=== PATIENT | female | born 1985 ===

== ENCOUNTER 2021-12-12 07:42 | Outpatient (CLI) | payer OTHER | END 2021-12-12 08:50 | disposition home or self-care (01) | LOC: PRENATAL 07:42 | PROVIDERS: ATTEND Obstetrics & Gynecology Maternal & Fetal Medicine | DX: O36.80X0 Pregnancy with inconclusive fetal viability, not applicable or unspecified (principal); O09.519 Supervision of elderly primigravida, unspecified trimester; Z3A.11 11 weeks gestation of pregnancy ==

== ENCOUNTER 2022-01-03 17:03 | Emergency (ER) | payer OTHER ==
[~2022-01-03] VITALS: Ht 170.2 cm; Wt 82.1 kg
== END 2022-01-03 22:34 | disposition home or self-care (01) ==
LOC: ER 17:03
DX: O26.892 Other specified pregnancy related conditions, second trimester (principal); R10.2 Pelvic and perineal pain; Z3A.15 15 weeks gestation of pregnancy

== ENCOUNTER 2022-06-04 18:26 | Outpatient (CLI) | payer OTHER ==
[2022-06-04] MEDS ORDERED: PRENATAL TABLE1 EAC1 PO (19:03)
[2022-06-04] MEDS ORDERED: CHILDREN'S ASPI81 MG PO (19:03)
== END 2022-06-04 22:24 | disposition home or self-care (01) ==
LOC: OBS/DEL 18:26
PROVIDERS: ATTEND Obstetrics & Gynecology
DX: O36.8130 Decreased fetal movements, third trimester, not applicable or unspecified (principal); Z3A.36 36 weeks gestation of pregnancy

== ENCOUNTER 2022-06-24 22:25 | Inpatient (IN) | payer OTHER ==
[~2022-06-24] VITALS: Ht 170.2 cm; Wt 3.2 kg
[~2022-06-24 22:25] MED LIST: CHILDREN'S ASPI81 MG PO; PRENATAL TABLE1 EAC1 PO
== END 2022-06-27 13:00 | disposition home or self-care (01) | DRG 788 ==
LOC: LDR 22:25 → OB/GYN 22:25 → LDR 23:09 → OB/GYN 06-25 01:46
PROVIDERS: ADMIT Obstetrics & Gynecology; ATTEND Obstetrics & Gynecology
PROC: 4A1HXCZ Monitoring of Products of Conception, Cardiac Rate, External Approach (ICD-10-PCS; 2022-06-24)
PROC: 10D00Z1 Extraction of Products of Conception, Low, Open Approach (ICD-10-PCS; principal; 2022-06-25 00:15)
DX: O36.8330 Maternal care for abnormalities of the fetal heart rate or rhythm, third trimester, not applicable or unspecified (principal); O36.8130 Decreased fetal movements, third trimester, not applicable or unspecified; O99.824 Streptococcus B carrier state complicating childbirth; Z3A.39 39 weeks gestation of pregnancy; Z37.0 Single live birth; Z20.822 Contact with and (suspected) exposure to COVID-19